=== PATIENT | male | born 1955 | race Caucasian/White ===

== ENCOUNTER → 2016-08-14 | Outpatient (CLI) | payer OTHER | LOC: MMPC 11:11 | PROVIDERS: ATTEND Surgery | DX: K21.9 Gastro-esophageal reflux disease without esophagitis (principal) ==

== ENCOUNTER → 2016-08-28 | Outpatient (CLI) | payer OTHER ==
--- NOTE | 2016-08-28 11:18 | DI ---
XR L-SPINE 2-3 VW,08/28/2016 10:39 AM: Clinical History: Back pain of the lower sacral region. Previous Exam: October 26, 2005 Findings: AP and lateral views of the lumbar spine are obtained, and demonstrate no significant change from elana or exam except for a new epidural stimulator device. There is transpedicular fusion at L4-S1. There is also interbody fusion of L4/5 and L5/S1. Patient is status post cholecystectomy. Impression: No bony change from the prior exam.
== END ==
LOC: RAD 10:31
PROVIDERS: ATTEND Anesthesiology Pain Medicine
DX: M54.17 Radiculopathy, lumbosacral region (principal); Z98.1 Arthrodesis status
CPT/HCPCS: 72100

== ENCOUNTER → 2016-10-24 | Outpatient (CLI) | payer OTHER | LOC: MMPC 11:11 | DX: K21.9 Gastro-esophageal reflux disease without esophagitis (principal); G89.29 Other chronic pain; E66.9 Obesity, unspecified; F17.210 Nicotine dependence, cigarettes, uncomplicated | CPT/HCPCS: 99213; G0463 ==